=== PATIENT | male | born 1965 | race Caucasian/White ===

== ENCOUNTER → 2017-06-02 09:01 | Emergency (ER) | payer BC ==
[~2017-06-02 09:01] MED LIST: Iohexol 300* (CONTRAST) 10 ML SDV IV ONE; NS 0.9% 1000 ML* 2,000 ML IV ONE
--- NOTE | 2017-06-02 10:02 | ED ---
GI/ HPI - HPI Summary HPI Summary: 51M presents with n/v since Monday. dr dusty did colonoscopy on Monday. had polyps that were removed. took peg fo prep but did eat the morning of. He has been having diarrhea since colonoscopy. He developed pain in his RUQ this morning. States feels similar to when went through withdrawal from opioids. He admits to nausea and vomiting. He denies any dysuria, hematuria, frequency, urgency, or flank pain. He denies any previous abdominal surgeries. Is currently on suboxone but no recent change in medication. He states he has history of stomach pain. It is worst with acidic food the previous pain. - History of Current Complaint Chief Complaint: EDNauseaVomitDiarrh Time Seen by Provider: 06/02/17 09:46 Stated Complaint: NAUSEA,VOMITTING Pain Intensity: 0 - Allergy/Home Medications Allergies/Adverse Reactions: Allergies Allergy/AdvReac Type Severity Reaction Status Date / Time No Known Allergies Allergy Verified 06/02/17 10:07 PMH/Surg Hx/FS Hx/Imm Hx Endocrine/Hematology History: Denies: Hx Diabetes Cardiovascular History: Denies: Hx Hypertension, Hx Pacemaker/ICD History: Denies: Hx Renal Disease Sensory History: Denies: Hx Hearing Aid Psychiatric History: Denies: Hx Panic Disorder - Surgical History Surgery Procedure, Year, and Place: ANAL FISTULAR REPAIR. CARPAL TUNNEL - [facility] Infectious Disease History: Denies: Traveled Outside the [place] in Last 30 Days - Family History Known Family History: Positive: Diabetes - Social History Alcohol Use: None Substance Use Type: Reports: None Smoking Status (MU): Former Smoker Review of Systems Negative: Fever Negative: Chest Pain Negative: Shortness Of Breath Positive: Abdominal Pain, Vomiting, Diarrhea, Nausea All Other Systems Reviewed And Are Negative: Yes Physical Exam Triage Information Reviewed: Yes Vital Signs On Initial Exam: Initial Vitals Temp Pulse Resp BP Pulse Ox 98.4 F 66 22 158/91 100 06/02/17 09:03 06/02/17 09:03 06/02/17 09:03 06/02/17 09:03 06/02/17 09:03 Vital Signs Reviewed: Yes Appearance: Positive: Well-Appearing Skin: Positive: Warm, Dry Head/Face: Positive: Normal Head/Face Inspection Eyes: Positive: Normal, Conjunctiva Clear Respiratory/Lung Sounds: Positive: Clear to Auscultation, Breath Sounds Present Cardiovascular: Positive: Normal, RRR Abdomen Description: Positive: Soft, Other: - tender in epigastric region Bowel Sounds: Positive: Present Diagnostics - Vital Signs Vital Signs Temp Pulse Resp BP Pulse Ox 06/02/17 09:03 98.4 F 66 22 158/91 100 - Laboratory Result Diagrams: 06/02/17 10:20 06/02/17 10:20 Lab Statement: Any lab studies that have been ordered have been reviewed, and results considered in the medical decision making process. - CT abd CT Interpretation: No Acute Changes CT Interpretation Completed By: Radiologist Re-Evaluation - Re-Evaluation First Eval Re-Evaluation Time: 13:30 Change: Improved Comment: feeling better with fluids GIGU Course/Dx - Course Course Of Treatment: 51M presents with n/v since Monday. dr montano did colonoscopy on Monday. had polyps that were removed. took peg fo prep but did eat the morning of. He has been having diarrhea since colonoscopy. He developed pain in his RUQ this morning. States feels similar to when went through withdrawal from opioids. He admits to nausea and vomiting. He denies any dysuria, hematuria, frequency, urgency, or flank pain. He denies any previous abdominal surgeries. Is currently on suboxone but no recent change in medication. on exam tender in LUQ. wbc 15. crp 8. CT nothing acute. will treat as gastritis due to history of stomach pain worst with acidic food. patient understands and agrees with plan. - Diagnoses Differential Diagnoses - Male: Diverticulosis, Esophagitis/Gastritis, Gastroenteritis (Viral) Provider Diagnoses: Abdominal pain, Nausea and vomiting Discharge - Discharge Plan Condition: Good Disposition: HOME Prescriptions: Omeprazole CAP* [Prilosec CAP* 20 MG] 20 mg PO DAILY #20 cap. Ondansetron ODT TAB* [Zofran 4 MG Odt TAB*] 4 mg PO Q6H PRN #20 tab.odt PRN Reason: Nausea Patient Education Materials: Abdominal Pain (ED) Referrals: Goldy Naylor DO [Primary Care Provider] - Additional Instructions: Take Zofran for nausea every 6 hours Take operable 30 min-1 hour before eating in the morning Avoid acidic foods Use tums for break through symptoms Elevated head of bed Stay upright for at least 30 mins after eating Follow up with primary within 5 days Return to ED if develop fever, blood in stool, or severe nausea and vomiting or any new or worsening symptoms
[2017-06-02 10:37] LABS: Hematocrit 42 % (42-52); Hemoglobin 14.1 g/dl (14.0-18.0); Mean Corpuscular HGB Conc 33 g/dl (31-36); Mean Corpuscular Hemoglobin 28 pg (27-31); Mean Corpuscular Volume 84 fL (80-94); Mean Platelet Volume 8 um3 (7.4-10.4); Red Blood Count 5.01 10^6/ul (4.0-5.4); Red Cell Distribution Width 14 % (10.5-15); White Blood Count 15.2 10^3/ul (3.5-10.8)
[2017-06-02 10:56] LABS: BUN/Creatinine Ratio 15.8 (8-20); Calcium 8.9 mg/dL (8.6-10.3); EGFR African American 139.6 (>60); EGFR Non-African American 108.6 (>60); Globulin 2.6 g/dL (2-4); Potassium 3.9 mmol/L (3.5-5.0); Total Bilirubin 0.4 mg/dL (0.2-1.0); Total Protein 6.6 g/dL (6.4-8.9)
[2017-06-02 12:14] LABS: Urine Bacteria Absent (Absent); Urine Bilirubin Negative (Negative); Urine Glucose Negative (Negative); Urine Nitrite Negative (Negative)
--- NOTE | 2017-06-02 14:25 | RAD ---
INDICATION: Left upper quadrant pain. Recent colonoscopy with polypectomy. COMPARISON: CT May 14, 2012 TECHNIQUE: Axial source images were obtained from the hemidiaphragms to the symphysis pubis following administration of oral and intravenous contrast. 136 mL Omnipaque 300 was utilized. Coronal and sagittal reconstructed images were acquired. Lung bases: The lung bases are clear. Liver: The liver is normal in size. There are no new masses. There is 1.5 cm right hepatic lobe hypodensity. This is more conspicuous on today's examination likely related to the fact that this represent a contrast-enhanced exam. This is likely a cyst or hemangioma There is no ductal dilatation. Gallbladder: There are no calcified gallstones. There is no evidence of wall thickening or pericholecystic fluid. Spleen: The spleen is normal in size. There are no masses. Pancreas: There is no focal pancreatic mass or ductal dilatation. Adrenal glands: There is no evidence of adrenal mass. Kidneys: The kidneys are normal in size and position. There are prompt nephrograms and there is prompt excretion bilaterally. There are no renal parenchymal masses. There is no evidence of nephrolithiasis. Adenopathy: There is no evidence of adenopathy by size criteria. Fluid collections: There are no free or localized fluid collections. Vessels:There are no significant atherosclerotic changes involving the aorta. There is no focal aneurysm. The iliac vessels are normal in caliber. The IVC appears normal. GI tract: There are no acute CT bowel findings. There is no obstruction. The stomach and small bowel appear normal. There are no specific CT abnormalities of the lower GI tract. The appendix is visualized and appears normal. There is no pneumatosis. There is no obstruction. Pelvic organs: The prostate and seminal vesicles appear normal Bladder: The bladder wall appears trabeculated. Abdominal and pelvic soft tissues: The extraperitoneal abdominal and pelvic soft tissues appear normal.. Osseous structures: There are no acute osseous findings. Other: None IMPRESSION: The bladder wall appears thickened. There are no additional significant CT findings.
[2017-06-02 15:29] VITALS: BP 124/100
== END | disposition home or self-care (01) ==
LOC: ED 09:01
DX: R11.2 Nausea with vomiting, unspecified (principal); R10.9 Unspecified abdominal pain; R19.7 Diarrhea, unspecified; Z87.891 Personal history of nicotine dependence
CPT/HCPCS: 36415; 74177; 80053; 81003; 81015; 83690; 85025; 86141; 99283; Q9967

== ENCOUNTER 2018-01-11 09:46 | Emergency (ER) | payer BC ==
--- OUTSIDE RECORDS SUMMARY | 2018-01-11 09:57 | XMS REPORT ---
:1965 External Reference #:[id number] Author Organization [facility] Address [address] [place] [address] Phone [phone] Care Team Providers Name Role Phone Cresencio Valerio M.D. Care Team Information Compliance Aide Unavailable Payers Type Date Identification Numbers Payment Provider Subscriber Health Maintenance Policy Number: [id number] Chel Mccartney [facility] (O) PayID: [id number] [address] [place] [address] Problems Date Description Provider Status Onset: 05/16/2014 Chronic prostatitis Goldy Naylor D.O. Active Onset: 05/16/2014 Low back pain Goldy Naylor D.O. Active Onset: 10/07/2015 Contusion of interscapular region Goldy Naylor D.O. Active Onset: 10/07/2015 Myalgia Goldy Naylor D.O. Active Onset: 03/28/2016 Degeneration of lumbar intervertebral Cresencio Valerio M.D. Active disc Onset: 11/27/2017 Sleep apnea Cresencio Valerio M.D. Active Onset: 03/31/2017 Benign prostatic hypertrophy with Cresencio Valerio M.D. 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 morning for attention/c oncentratio n Fluticasone 11/27/ Active Suspension 50mcg/Act 16uni 2 sprays J31.0 Silcoff, Propionate 2017 ts into each Cresencio nostril M.D. once daily for nasal congestion Omeprazole 06/02/ Active Capsules DR 20mg 90cap one by K21.9 Silcoff, 2017 s mouth daily Cresencio, for acid M.D. reflux R11.2 Ondansetron 06/02/2017 Active Tablets 4mg 30tabs Dissolve One R11.2 Silcoff, Dispers Tablet On Cresencio, The Tongue M.D. Every 6 Hours as Needed For Nausea Ibuprofen 08/04/2016 Active Tablets 200mg taking 2 tab Unknown to 4 tab with a snack for your pain as needed Tamsulosin HCL 2016 Active Capsules 0.4mg 30caps take one N40.1 Silcoff, capsule by Cresencio, mouth once M.D. daily as directed Cyclobenzaprine 07/04/2016 Active Tablets 10mg 30tabs 1 by mouth M54.5 Silcoff, HCL three times Cresencio, a day as M.D. needed for back pain; this medication is sedating. Buprenorphine 05/03/2016 Active Tablets 8-2mg 45tabs 1 tab by M54.5 Silcoff, HCL-Naloxone HCL Sub mouth every Cresencio, in the M.D. morning and 1/2 tablet in late afternoon; prescriber# [id number]; may fill 12/28/17 M51.36 Z79.891 Amphetamine-Dextroamp 11/27 Hx Caps ER 24HR 10mg 30cap take 1 capsule by F90.2 Silcoff, het ER /2017 s mouth every Cresencio, - morning for M.D. 12/08 attention/concentr 2018 ation; if not helpful may increase to 2 pills daily in am Prochlorperazine 05/31 Hx Tablets 5mg 10tab take 1-2 tablets A08.3 Silcoff, Male s by mouth every 6 9 Cresencio, - hours as needed M.D. 06/03 for nausea /2016 Alpha Male Supplement 05/02 Hx as directed Unknown - 05/02 Buprenorphine 04/04 Hx Tablets Sub 8-2mg 30tab 1/2 tab by mouth M54.5 Silcoff, HCL-Naloxone HCL /2015 s 2x/day; Cresencio, - buprenorphine M.D. 05/03 prescriber# /2015 [id number] M51.36 Buprenorphine 03/28/2016 - Hx Tablets 8-2mg 7tabs 1/2 tab by M54.5 Silcoff, HCL-Naloxone HCL 04/04/2016 Sub mouth today; Cresencio, starting M.D. tomorrow take 1/2 tab in am and 1/2 tab in mid afternoon M51.36 Phenazopyridine 10/07/2015 - Hx Tablets 200mg 9tabs 1 by mouth N41.1 Sopchak, HCL 10/10/2015 three Goldy, times a D.O. day for 3 days this will turn your urine orange colored. Ciprofloxacin HCL 10/07/2015 - Hx Tablets 500mg 60tabs 1 tab N41.1 Mariajosek, 11/06/2015 twice a Goldy, day x 30 D.O. days Gabapentin 05/30/2014 - Hx Capsules 100mg 120caps 1 tabs by 601.1 Sopchak, 10/07/2015 mouth four Goldy, times a D.O. day Opana 05/15/2014 - Hx Tablets 10mg 160tabs 1 by mouth M54.5 Unknown 03/28/2016 four times a day Opana ER 05/15/2014 - Hx Tab ER 12H 30mg 1 po bid M54.5 Unknown 03/28/2016 Abuse-Det Amrix - Hx Caps ER 24HR 15mg Unknown 10/07/2015 Oxycodone HCL - Hx Concentrate 100mg/5 Unknown 10/07/2015 ML Oxymorphone HCL - Hx Tablets ER 30mg Unknown ER 10/07/2015 12HR Ciprofloxacin HCL - Hx Tablets 500mg 1 bid Clive, 10/07/2015 MD Eulalio Palafox - Hx Capsules 10mg Unknown 03/27/2016 Doxycycline - Hx Capsules 100mg Unknown Hyclate 12/28/2013 Immunizations CPT Code Status Date Vaccine Lot # [id number] Given 07/28/2017 Influenza Virus Vaccine, Quadrivalent, Split, Preservative Free 13089 Given 08/05/2016 Influenza Virus Vaccine, Quadrivalent, Split, [id number] Preservative Free [id number] Given 05/16/2014 Adacel or Boostrix, TDaP [id number] Vital Signs Date Vital Result Comment 12/25/2017 BP Systolic 116 mmHg BP Diastolic 74 mmHg Weight 250.00 lb 11/27/2017 BP Systolic 118 mmHg BP Diastolic 70 mmHg 10/27/2017 BP Systolic 120 mmHg BP Diastolic 78 mmHg Weight 250.00 lb with sneakers 09/26/2017 BP Systolic 116 mmHg BP Diastolic 70 mmHg Weight 249.00 lb w/workboots 08/28/2017 BP Systolic 120 mmHg BP Diastolic 76 mmHg Weight 249.50 lb 07/28/2017 BP Systolic 102 mmHg BP Diastolic 70 mmHg Weight 246.00 lb 06/30/2017 BP Systolic 110 mmHg BP Diastolic 72 mmHg Weight 245.00 lb with sneakers 05/31/2017 BP Systolic 120 mmHg BP Diastolic 80 mmHg Body Temperature 97.7 F Weight 241.00 lb 05/01/2017 BP Systolic 122 mmHg BP Diastolic 80 mmHg Weight 241.00 lb 03/31/2017 BP Systolic 118 mmHg BP Diastolic 80 mmHg Height 69.25 inches 5'9.25" with sneakers Weight 234.00 lb with sneakers BMI (Body Mass Index) 34.3 kg/m2 03/01/2017 BP Systolic 100 mmHg BP Diastolic 70 mmHg Weight 238.00 lb 01/30/2017 BP Systolic 118 mmHg BP Diastolic 82 mmHg Weight 240.00 lb 12/30/2016 BP Systolic 120 mmHg BP Diastolic 80 mmHg Weight 245.00 lb 12/02/2016 BP Systolic 132 mmHg BP Diastolic 92 mmHg Weight 250.00 lb 11/01/2016 BP Systolic 118 mmHg BP Diastolic 70 mmHg Heart Rate 68 /min reg Respiratory Rate 12 /min not laboured Body Temperature 97.9 F Weight 258.00 lb w/shoes 10/03/2016 BP Systolic 102 mmHg BP Diastolic 82 mmHg Height 69.75 inches 5'9.75" Weight 253.00 lb BMI (Body Mass Index) 36.6 kg/m2 08/30/2016 BP Systolic 118 mmHg BP Diastolic 82 mmHg Weight 257.00 lb 08/05/2016 BP Systolic 126 mmHg BP Diastolic 80 mmHg Weight 257.00 lb w/flip flops 07/04/2016 BP Systolic 132 mmHg BP Diastolic 86 mmHg Weight 263.00 lb 05/31/2016 BP Systolic 140 mmHg BP Diastolic 88 mmHg Weight 265.00 lb 05/03/2016 BP Systolic 120 mmHg BP Diastolic 84 mmHg Weight 271.00 lb 04/04/2016 BP Systolic 128 mmHg BP Diastolic 82 mmHg 03/28/2016 BP Systolic 138 mmHg BP Diastolic 90 mmHg Height 69 inches 5'9" with sneakers Weight 268.00 lb with sneakers BMI (Body Mass Index) 39.6 kg/m2 10/07/2015 BP Systolic 125 mmHg BP Diastolic 80 mmHg Height 68.25 inches 5'8.25" Weight 297.00 lb BMI (Body Mass Index) 44.8 kg/m2 05/30/2014 BP Systolic 120 mmHg BP Diastolic 96 mmHg 05/16/2014 BP Systolic 142 mmHg BP Diastolic 80 mmHg Height 68.5 inches 5'8.50" Weight 283.00 lb BMI (Body Mass Index) 42.4 kg/m2 Results Test Date Test Result H/L Range Note Urine Drug Screen Inhouse 09/26/2017 Ua Cocaine - Ua Opiates - Ua Amphetamines - Urine Methanphetamines - Urine Benzodiazepines QN [place] - Urine Oxycodone QL - Laboratory test finding 06/02/2017 Lipase 12 U/L 11.0-82.0 CRP High Sensitivity 4.66 mg/L 1 Urinalysis Profile 06/02/2017 Urine Color Yellow Urine Appearance Cloudy Urine Specific [place] 1.025 1.010-1.030 Urine pH 8.0 5-9 Urine Urobilinogen Negative Negative Urine Ketones Trace Negative Urine Protein 1+(30 mg/dL) Negative Urine Leukocytes Negative Negative Urine Blood Negative Negative Urine Nitrite Negative Negative Urine Bilirubin Negative Negative Urine Glucose Negative Negative Urine White Blood Cell Absent Absent Urine Red Blood Cell Trace(0-2/hpf) Absent Urine Bacteria Absent Absent Urine Squamous Epithelial Cell Present Absent Comp Metabolic Panel 06/02/2017 Sodium 137 mmol/L 133-145 Potassium 3.9 mmol/L 3.5-5.0 Chloride 104 mmol/L 101-111 Co2 Carbon Dioxide 28 mmol/L 22-32 Anion Gap 5 mmol/L 2-11 Glucose 110 mg/dL High 70-100 Blood Urea Nitrogen 12 mg/dL 6-24 Creatinine 0.76 mg/dL 0.67-1.17 BUN/Creatinine Ratio 15.8 8-20 Calcium 8.9 mg/dL 8.6-10.3 Total Protein 6.6 g/dL 6.4-8.9 Albumin 4.0 g/dL 3.2-5.2 Globulin 2.6 g/dL 2-4 Albumin/Globulin Ratio 1.5 1-3 Total Bilirubin 0.40 mg/dL 0.2-1.0 Alkaline Phosphatase 64 U/L 34-104 Alt 18 U/L 7-52 Ast 15 U/L 13-39 Egfr Non- 108.6 >60 Egfr 139.6 >60 2 CBC Auto Diff 06/02/2017 White Blood Count 15.2 10^3/uL High 3.5-10.8 Red Blood Count 5.01 10^6/uL 4.0-5.4 Hemoglobin 14.1 g/dL 14.0-18.0 Hematocrit 42 % 42-52 Mean Corpuscular Volume 84 fL 80-94 Mean Corpuscular Hemoglobin 28 pg 27-31 Mean Corpuscular HGB Conc 33 g/dL 31-36 Red Cell Distribution Width 14 % 10.5-15 Platelet Count 238 10^3/uL 150-450 Mean Platelet Volume 8 um3 7.4-10.4 Abs Neutrophils 13.0 10^3/uL High 1.5-7.7 Abs Lymphocytes 1.6 10^3/uL 1.0-4.8 Abs Monocytes 0.5 10^3/uL 0-0.8 Abs Eosinophils 0 10^3/uL 0-0.6 Abs Basophils 0.1 10^3/uL 0-0.2 Abs Nucleated RBC 0 10^3/uL Granulocyte % 85.2 % High 38-83 Lymphocyte % 10.8 % Low 25-47 Monocyte % 3.1 % 1-9 Eosinophil % 0.2 % 0-6 Basophil % 0.7 % 0-2 Nucleated Red Blood Cells % 0 Laboratory test finding 05/29/2017 Surgical Pathology SEE RESULT BELOW 3, 4 Ua RFX Micro & 03/10/2017 Urine Color YELLOW Yellow 5 Culture II Urine Clarity CLEAR Clear 5 Urine Glucose - Dipstick NEGATIVE mg/dL Negative 5 Urine Bilirubin - Dipstick NEGATIVE Negative 5 Urine Ketone NEGATIVE mg/dL Negative 5 Urine Specific Bellflower >=1.030 1.010-1.030 5 Urine Blood TRACE Negative 5 Urine PH 5.5 Low 6.5-7.5 5 Urine Protein - Dipstick TRACE mg/dL Negative 5 Urine Urobilinogen - Dipstick 0.2 E.U./dL 0.2-1.0 5 Urine Nitrite - Dipstick NEGATIVE Negative 5 Urine Leuk Esterase NEGATIVE Negative 5 Source: URINE, CLEAN CAT <SEE NOTE> 5, 6 Urine Drug Screen Inhouse 03/01/2017 Ua Cocaine - Ua Opiates - Ua Amphetamines - Urine Methanphetamines - Urine Benzodiazepines QN [place] - Urine Oxycodone QL - Urine Micro Inhouse 11/01/2016 Ua WBC - 7 Ua RBC - 7 Ua Casts - 7 Ua Epi - 7 Ua Other - 7 Ua Glucose - 7 Ua Bilirubin - 7 Ua Ketones - 7 Ua Specific Bellflower 1.010 7 Ua Blood - 7 Ua PH 6.5 7 Ua Protein - 7 Ua Urobilinogen - 7 Ua Nitrite - 7 Ua Leukocytes - 7 Culture Urine Inhouse 11/01/2016 Colonies no growth 7 Urine Drug Screen Inhouse 11/01/2016 Ua Cocaine - Ua Opiates - Ua Amphetamines - Urine Methanphetamines - Urine Benzodiazepines QN [place] - Urine Oxycodone QL - Urine Drug Screen Inhouse 08/30/2016 Ua Cocaine - Ua Opiates - Ua Amphetamines - Urine Methanphetamines - Urine Benzodiazepines QN [place] - Urine Oxycodone QL - Urine Drug Screen Inhouse 08/05/2016 Ua Cocaine - Ua Opiates - Ua Amphetamines - Urine Methanphetamines - Urine Benzodiazepines QN [place] - Urine Oxycodone QL - Urine Drug Screen Inhouse 07/04/2016 Ua Cocaine - Ua Opiates - Ua Amphetamines - Urine Methanphetamines - Urine Benzodiazepines QN [place] - Urine Oxycodone QL - Urine Drug Screen Inhouse 05/03/2016 Ua Cocaine - Ua Opiates - Ua Amphetamines - Urine Methanphetamines - Urine Benzodiazepines QN [place] - Urine Oxycodone QL - Laboratory test finding 02/25/2016 PSA Screening 1.077 ng/mL 0-4.0 8 Creatinine 02/25/2016 Creatinine 0.78 mg/dL 0.67-1.17 Egfr Non- 105.8 >60 Egfr 136.1 >60 9 Laboratory test finding 02/25/2016 Blood Urea Nitrogen BUN 13 mg/dL 6-24 Comp Metabolic Panel 10/07/2015 Sodium 136 mmol/L 133-145 Potassium 4.3 mmol/L 3.5-5.0 Chloride 99 mmol/L Low 101-111 Co2 Carbon Dioxide 31 mmol/L 22-32 Anion Gap 6 mmol/L 2-11 Glucose 112 mg/dL High 70-100 Blood Urea Nitrogen 13 mg/dL 6-24 Creatinine 0.79 mg/dL 0.67-1.17 BUN/Creatinine Ratio 16.5 8-20 Calcium 8.9 mg/dL 8.6-10.3 Total Protein 6.3 g/dL Low 6.4-8.9 Albumin 3.8 g/dL 3.2-5.2 Globulin 2.5 g/dL 2-4 Albumin/Globulin Ratio 1.5 1-3 Total Bilirubin 0.30 mg/dL 0.2-1.0 Alkaline Phosphatase 65 U/L 34-104 Alt 18 U/L 7-52 Ast 16 U/L 13-39 Egfr Non- 104.2 >60 Egfr 134.1 >60 10 CBC Auto Diff 10/07/2015 White Blood Count 13.0 10^3/uL High 3.5-10.8 Red Blood Count 4.91 10^6/uL 4.0-5.4 Hemoglobin 13.4 g/dL Low 14.0-18.0 Hematocrit 41 % Low 42-52 Mean Corpuscular Volume 84 fL 80-94 Mean Corpuscular Hemoglobin 27 pg 27-31 Mean Corpuscular HGB Conc 33 g/dL 31-36 Red Cell Distribution Width 15 % 10.5-15 Platelet Count 251 10^3/uL 150-450 Mean Platelet Volume 7 um3 Low 7.4-10.4 Abs Neutrophils 9.3 10^3/uL High 1.5-7.7 Abs Lymphocytes 2.3 10^3/uL 1.0-4.8 Abs Monocytes 0.9 10^3/uL High 0-0.8 Abs Eosinophils 0.4 10^3/uL 0-0.6 Abs Basophils 0.1 10^3/uL 0-0.2 Abs Nucleated RBC 0.01 10^3/uL Granulocyte % 71.8 % 38-83 Lymphocyte % 17.5 % Low 25-47 Monocyte % 7.0 % 1-9 Eosinophil % 3.3 % 0-6 Basophil % 0.4 % 0-2 Nucleated Red Blood Cells % 0.1 Laboratory test finding 10/07/2015 PSA Diagnostic 0.966 ng/mL 0-4.000 11 1 Low risk: <1.00 Average risk: 1.00-3.00 High risk: >3.00 2 Because ethnic data is not always readily available, this report includes an eGFR for both -Americans and non- Americans. The National Kidney Disease Education Program (NKDEP) does not endorse the use of the MDRD equation for patients that are not between the ages of 18 and 70, are , have extremes of body size, muscle mass, or nutritional status, or are non- or non-. According to the National Kidney Foundation, irrespective of diagnosis, the stage of the disease is based on the level of kidney function: Stage Description GFR(mL/min/1.73 m(2)) 1 Kidney damage with normal or decreased GFR 90 2 Kidney damage with mild decrease in GFR 60-89 3 Moderate decrease in GFR 30-59 4 Severe decrease in GFR 15-29 5 Kidney failure <15 (or dialysis) 3 [id number] SEE RESULT BELOW Name: AJN MCCARTNEY : [address]: John Palacios MD Acct: [id number] Unit: [id number] AGE: 51 Location: [facility] Re05/29/17 SEX: M Status: DEP REF SPEC: [id number] KIRSTIN: 05/29/170837 [facility] DR: John Palacios MD REQ: [id number] RECD: 05/29/17 STATUS: GONZÁLEZ SWEENEY DR: Cresencio Valerio MD _ ORDERED: LEVEL 4/3 COMMENTS: [id number] FINAL DIAGNOSIS 1. Colon, hepatic flexure, biopsy: -- Tubular adenoma. -- No high grade dysplasia or malignancy. 2. Colon, transverse, biopsy: -- Tubular adenoma. -- No high grade dysplasia or malignancy. 3. Colon, descending, biopsy: -- Tubular adenoma. -- No high grade dysplasia or malignancy. CLINICAL HISTORY No history given POST-OPERATIVE DIAGNOSIS Colonoscopy into cecum, prep fair - 4 small polyps removed. Conclusions/Plan : Four small polyps removed GROSS DESCRIPTION 1. The specimen is received in formalin labeled, Biopsy Hepatic Flexure Polyp, and consists of two joseph-pink irregular to polypoid soft tissue fragments measuring 0.3 x 0.2 x 0.1 cm and 0.4 x 0.2 x 0.2 cm, which are entirely submitted in one cassette. 2. The specimen is received in formalin labeled, Biopsy Transverse Colon Polyp, and consists of a 0.5 x 0.3 x 0.2 cm joseph-white irregular to polypoid soft tissue fragment, which is entirely submitted in one cassette. CONTINUED ON NEXT PAGE * ML=Testing performed at Main Lab DEPARTMENT OF PATHOLOGY, [address] [place] [address] Car Parrish M.D. Director [facility] # [id number] RUN DATE: 05/30/17 [facility] LAB LIVE PAGE 2 Patient: JAN MCCARTNEY [id number] (Continued) GROSS DESCRIPTION (Continued) GROSS DESCRIPTION (Continued) 3. The specimen is received in formalin labeled, Biopsy Descending Colon Polyp, and consists of three joseph-white irregular to polypoid soft tissue fragments admixed with scant red-brown blood clot ranging from 0.3 x 0.2 x 0.2 cm to 0.5 x 0.3 x 0.2 cm, which are entirely submitted in one cassette. Signed (signature on file) Magalis Emmanuel MD 06/08 1104 END OF REPORT * ML=Testing performed at Main Lab DEPARTMENT OF PATHOLOGY, [address] [place] [address] Car Parrish M.D. Director [facility] # [id number] 5 ? INFECTION , NEEDS ANTIBIOTICS 6 URINE, CLEAN CATCH 7 void, clear, yellow 8 Serum levels of PSA measured using the [employer] [place] DXI Hybritech immunoassay should not be interpreted as absolute evidence of the presence or absence of disease. The PSA value should be used in conjunction with other pertinent clinical diagnostic procedures. The values obtained with different assay methods or kits cannot be used interchangeably. 9 Because ethnic data is not always readily available, this report includes an eGFR for both -Americans and non- Americans. The National Kidney Disease Education Program (NKDEP) does not endorse the use of the MDRD equation for patients that are not between the ages of 18 and 70, are , have extremes of body size, muscle mass, or nutritional status, or are non- or non-. According to the National Kidney Foundation, irrespective of diagnosis, the stage of the disease is based on the level of kidney function: Stage Description GFR(mL/min/1.73 m(2)) 1 Kidney damage with normal or decreased GFR 90 2 Kidney damage with mild decrease in GFR 60-89 3 Moderate decrease in GFR 30-59 4 Severe decrease in GFR 15-29 5 Kidney failure <15 (or dialysis) 10 Because ethnic data is not always readily available, this report includes an eGFR for both -Americans and non- Americans. The National Kidney Disease Education Program (NKDEP) does not endorse the use of the MDRD equation for patients that are not between the ages of 18 and 70, are , have extremes of body size, muscle mass, or nutritional status, or are non- or non-. According to the National Kidney Foundation, irrespective of diagnosis, the stage of the disease is based on the level of kidney function: Stage Description GFR(mL/min/1.73 m(2)) 1 Kidney damage with normal or decreased GFR 90 2 Kidney damage with mild decrease in GFR 60-89 3 Moderate decrease in GFR 30-59 4 Severe decrease in GFR 15-29 5 Kidney failure <15 (or dialysis) 11 Serum levels of PSA measured using the [employer] [place] DXI Hybritech immunoassay should not be interpreted as absolute evidence of the presence or absence of disease. The PSA value should be used in conjunction with other pertinent clinical diagnostic procedures. The values obtained with different assay methods or kits cannot be used interchangeably. Procedures Date CPT Code Description Status Comment 05/29/2017 Colonoscopy Completed 2017:3 TAs (P: repeat 5yrs) Encounters Type Date Location Provider CPT E/M Dx Office Visit 12/25/2017 9:15a Main Office Cresencio Valerio M.D. 15500 Z79.891 Z71.51 M51.36 M54.5 F90.2 Office Visit 11/27/2017 11:30a Main Office Cresencio Valerio M.D. 06978 Z79.891 Z71.51 M51.36 M54.5 J34.2 J31.0 G47.30 F34.1 F90.2 Office Visit 10/27/2017 11:45a Main Office Cresencio Valerio M.D. 23311 Z79.891 Z71.51 M51.36 M54.5 Office Visit 09/26/2017 2:30p Main Office Cresencio Valerio M.D. 09103 Z79.891 Z71.51 M51.36 M54.5 Office Visit 08/28/2017 10:15a Main Office Cresencio Valerio M.D. 93570 Z79.891 Z71.51 M51.36 M54.5 Office Visit 07/28/2017 3:45p Main Office Cresencio Valerio M.D. 35735 Z79.891 Z71.51 M51.36 M54.5 K21.9 Z23 Office Visit 06/30/2017 1:30p Main Office Cresencio Valerio M.D. 88568 Z79.891 Z71.51 M51.36 M54.5 K21.9 R11.2 Z23 Office Visit 05/31/2017 10:00a Main Office Cresencio Valerio M.D. 31583 Z79.891 Z71.51 M51.36 M54.5 Z86.010 A08.39 Office Visit 05/01/2017 10:45a Main Office Cresencio Valerio M.D. 42145 M54.5 M51.36 Z71.51 Z79.891 Office Visit 03/31/2017 11:00a Main Office Cresencio Valerio M.D. 64622 M54.5 M51.36 Z71.51 Z79.891 N40.1 Office Visit 03/01/2017 10:15a Main Office Cresencio Valerio M.D. 83869 M54.5 M51.36 Z71.51 Z79.891 Office Visit 01/30/2017 12:55p Main Office Cresencio Valerio M.D. 80865 Z79.891 Z12.11 M51.36 Office Visit 12/30/2016 1:45p Main Office Cresencio Valerio M.D. 31620 Z71.51 Z79.891 M54.5 Office Visit 12/02/2016 9:15a Main Office Cresencio Valerio M.D. 46100 Z79.891 Z71.51 M54.5 Office Visit 11/01/2016 11:00a Main Office Cresencio Valerio M.D. 38847 Z79.891 Z71.51 M54.5 R35.0 R39.15 R10.814 Office Visit 10/03/2016 10:45a Main Office Cresencio Valerio M.D. 55598 Z79.891 Z71.51 M51.36 M54.5 Office Visit 08/30/2016 9:30a Main Office Cresencio Valerio M.D. 39138 Z79.891 Z71.51 M51.36 M54.5 M72.2 Office Visit 08/05/2016 11:30a Main Office Cresencio Valerio M.D. 77069 M51.36 M54.5 Z79.891 Z71.51 Z12.11 Z23 Z41.8 Office Visit 07/04/2016 9:30a Main Office Cresencio Valerio M.D. 12900 M51.36 M54.5 Z79.891 Office Visit 05/31/2016 11:15a Main Office Cresencio Valerio M.D. 90136 M54.5 M72.2 Z79.891 Office Visit 05/03/2016 11:30a Main Office Cresencio Valerio M.D. 52318 M54.5 M72.2 Office Visit 04/04/2016 9:30a Main Office Cresencio Valerio M.D. 15228 M54.5 M51.36 M72.2 Z79.891 Office Visit 03/28/2016 9:30a Main Office Cresencio Valerio M.D. 48312 M54.5 M51.36 Z79.891 Office Visit 10/07/2015 1:30p Main Office Goldy Naylor D.O. 13401 N41.1 M54.5 M79.1 S20.222A Y92.012 Office Visit 05/30/2014 4:15p Main Office Goldy Naylor D.O. 36016 601.1 724.2 729.1 Office Visit 05/16/2014 2:45p Main Office Goldy Naylor D.O. 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 Continue current medication.
[2018-01-11 10:00] VITALS: BP 148/89
--- NOTE | 2018-01-11 11:12 | RAD ---
INDICATION: Right hand injury. TECHNIQUE: 2 views of the right hand were obtained. FINDINGS: There is soft tissue swelling in the third and fourth fingers. The bones are in normal alignment. No fracture is seen. Joint spaces appear maintained. IMPRESSION: SOFT TISSUE SWELLING, NO FRACTURE IS SEEN.
--- NOTE | 2018-01-11 15:06 | UC ---
Nelson Horvath Angela, scribed for Ok Savage MD on 01/11/18 at 1003 . Upper Extremity HPI - HPI Summary HPI Summary: This pt is a 52 y/o male presenting to [facility] c/o right hand pain s/p injury yesterday. 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 Pt states he injured his right fourth finger. He notes that he has been having pain since last night. Pt rates his pain 4 to 5 out of 10 in severity. Pt denies any other complaints. No PMHx. PSHx: sphincterotomy for anal fissure repair. - History of Current Complaint Chief Complaint: UCUpperExtremity Stated Complaint: HAND INJURY Time Seen by Provider: 01/11/18 09:56 Hx Obtained From: Patient Onset/Duration: Lasting Hours, Still Present Severity Currently: Severe Pain Intensity: 5 Pain Scale Used: 0-10 Numeric Location Of Pain: Is Discrete @ - right hand, right fourth finger Aggravating Factor(s): Movement Alleviating Factor(s): Rest Associated Signs And Symptoms: Positive: Negative - Allergies/Home Medications Allergies/Adverse Reactions: Allergies Allergy/AdvReac Type Severity Reaction Status Date / Time No Known Allergies Allergy Verified 01/11/18 09:54 Home Medications: Home Medications Ibuprofen TAB* [Motrin TAB* 800 MG] 800 mg PO Q4HR PRN 01/11/18 [History Confirmed 01/11/18] PMH/Surg Hx/FS Hx/Imm Hx Other Endocrine History: DENIES: diabetes Other Cardiovascular History: DENIES: HTN Other GI/ History: Prostatitis - Surgical History Surgical History: Yes Surgery Procedure, Year, and Place: ANAL FISTULAR REPAIR. CARPAL TUNNEL - [place] - Family History Known Family History: Positive: Diabetes - Social History Alcohol Use: None Substance Use Type: Prescribed Substance Use Comment - Amount & Last Used: Suboxone Smoking Status (MU): Former Smoker Review of Systems Constitutional: Negative Skin: Negative Eyes: Negative ENT: Negative Respiratory: Negative Cardiovascular: Negative Gastrointestinal: Negative Genitourinary: Negative Motor: Negative Neurovascular: Negative Musculoskeletal: Other: - right hand pain, right fourth finger pain Neurological: Negative Psychological: Negative All Other Systems Reviewed And Are Negative: Yes Physical Exam - Summary Physical Exam Summary: VITAL SIGNS: Reviewed. GENERAL: Patient is a well-developed and nourished male who is lying comfortable in the stretcher. Patient is not in any acute respiratory distress. HEAD AND FACE: Normocephalic EYES: PERRLA, EOMI x 2. EARS: Hearing grossly intact. MOUTH: Oropharynx within normal limits. NECK: Supple, trachea is midline, no adenopathy, no JVD, no carotid bruit. CHEST: Symmetric, no tenderness at palpation LUNGS: Clear to auscultation bilaterally. No wheezing or crackles. CVS: Regular rate and rhythm, S1 and S2 present, no murmurs or gallops appreciated. ABDOMEN: Soft, non-tender. Bowel sounds are normal. No abdominal abnormal pulsations. EXTREMITIES: Full ROM in all major joints, no cyanosis or clubbing. RUE: swelling around the right fourth finger. No erythema. No deformity. No open areas. NEURO: Alert and oriented x 3. No acute neurological deficits. Speech is normal and follows commands. SKIN: Dry and warm Triage Information Reviewed: Yes Vital Signs: Initial Vital Signs Temp 98.2 F 01/11/18 09:56 Pulse 72 01/11/18 09:56 Resp 16 01/11/18 09:56 BP 148/89 01/11/18 09:56 Pulse Ox 99 01/11/18 09:56 Vital Signs Reviewed: Yes Diagnostics - Radiology Right hand XR Xray Interpretation: Positive (See Comments) - IMPRESSION: Soft tissue swelling , no fracture is seen. Dr. Savage has reviewed this radiology report. Radiology Interpretation Completed By: Radiologist Re-Evaluation - Re-Evaluation First Eval Re-Evaluation Time: 11:19 Comment: I reviewed the XR results with the pt. Upper Extremity Course/Dx - Course Course Of Treatment: This pt is a 52 y/o male presenting to [facility] c/o right hand pain s/p injury yesterday. 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 Pt states he injured his right fourth finger. He notes that he has been having pain since last night. Pt rates his pain 4 to 5 out of 10 in severity. Pt denies any other complaints. No PMHx. PSHx: sphincterotomy for anal fissure repair. Right hand XR shows soft tissue swelling, no fracture is seen. There are no cuts, no openings, no erythema, therefore I have no suspicion for tenosynovitis. However the pt was instructed that if his pain is worse, has throbbing like pain, or redness, he should go immediately to the emergency department to rule out tenosynovitis. I believe the pt has a tendon injury and swelling, therefore he will be discharged to home. He is advised to take ibuprofen for the pain. I discussed all the findings and test results with the patient. Pt was instructed to return to the urgent care or go to ER immediately if any of the symptoms return or worsens. Plan of care was discussed with the patient and pt understands and agrees. All questions were answered to patient satisfaction. There were no further complaints or concerns. Pt will be discharged to home with follow up from PCP. Pt is hemodynamically stable, alert and oriented x3. The patient was found to have increased blood pressure in UC. The patient will follow up with PCP for better control of BP. - Differential Dx/Diagnosis Provider Diagnoses: Finger sprain Discharge - Sign-Out/Discharge Documenting (check all that apply): Discharge - Discharge Plan Condition: Stable Disposition: HOME Patient Education Materials: Finger Sprain (ED) Referrals: Cresencio Valerio MD [Primary Care Provider] - Additional Instructions: FOLLOW UP WITH YOUR PRIMARY CARE PROVIDER WITHIN ONE WEEK FOR HIGH BLOOD PRESSURE NOTED TODAY. RETURN TO URGENT CARE OR THE ED FOR ANY WORSENING OR NEW SYMPTOMS. The documentation as recorded by the Nelson de la rosa Angela accurately reflects the service I personally performed and the decisions made by me, Ok Savage MD.
== END 2018-01-11 11:35 | disposition home or self-care (01) ==
LOC: UCEAST 09:46
DX: S63.614A Unspecified sprain of right ring finger, initial encounter (principal); X58.XXXA Exposure to other specified factors, initial encounter; Y92.9 Unspecified place or not applicable; Z87.891 Personal history of nicotine dependence
CPT/HCPCS: 99211; G0463

== ENCOUNTER 2018-12-10 10:32 | Emergency (ER) | payer BC ==
[2018-12-10] MEDS ORDERED: Pantoprazole IV* 40 MG IV ONE (10:44)
[2018-12-10] MEDS ORDERED: Famotidine TAB* 20 MG PO ONE (10:44)
[2018-12-10] MEDS ORDERED: Al Hydrox/Mg Hydrox/Simet LIQ* 30 ML UDC PO ONE (10:44)
[2018-12-10] MEDS ORDERED: Sucralfate TAB* 1 GM PO ONE (10:44)
--- OUTSIDE RECORDS SUMMARY | 2018-12-10 10:44 | XMS REPORT | Continuity of Care Document ---
:1965 External Reference #:[id number] Author Name Cresencio Valerio M.D. Address [address] [facility] [address] [place] [address] Care Team Providers Name Role Phone Cresencio Valerio M.D. 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 Active Onset: 05/16/2014 Low back pain Goldy Naylor D.O. Active Onset: 10/07/2015 Contusion of interscapular region Goldy Naylor D.O. Active Onset: 10/07/2015 Myalgia Goldy Naylor D.O. Active Onset: 03/28/2016 Degeneration of lumbar intervertebral Cresencio Valerio M.D. Active disc Onset: 02/26/2018 Attention deficit hyperactivity Cresencio Valerio M.D. Active disorder, combined type Onset: 11/27/2017 Sleep apnea Cresencio Valerio M.D. Active Onset: 03/31/2017 Benign prostatic hypertrophy with Cresencio Valerio M.D. 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 morning for attention/c oncentratio n; rx due 11/29/18 Fluticasone 11/27/ Active Suspension 50mcg/Act 16uni 2 sprays J31.0 Silcoff, Propionate 2018 ts into each Cresencio nostril M.D. once daily for nasal congestion Ondansetron 06/02/ Active Tablets 4mg 30tab Dissolve R11.2 Silcotom, 2016 Dispers s One Tablet Cresencio On The M.D. Tongue Every 6 Hours as Needed For Nausea Omeprazole 06/02/ Active Capsules DR 20mg 90cap Take One K21.9 Silcoff, 2016 s Capsule By Cresencio, Mouth Every M.D. Day For Acid Reflux R11.2 Ibuprofen 08/04/2016 Active Tablets 200mg taking 2 tab Unknown to 4 tab with a snack for your pain as needed Tamsulosin HCL 2016 Active Capsules 0.4mg 90ca take one N40 Sopchak, ps capsule by .1 Goldy, mouth every D.O. day as directed Cyclobenzaprine HCL 07/04/2016 Active Tablets 10mg 30ta 1 by mouth M54 Teodoro bs three times a .5 Cresencio, day as needed M.D. for back pain; this medication is sedating. Buprenorphine 05/03/2016 Active Tablets Sub 8-2mg 45ta 1 tab by Janis Valerio HCL-Naloxone HCL bs mouth every .5 Cresencio, in the M.D. morning and 1/2 tablet in late afternoon; prescriber# [id number] M51.36 Z79.891 Replacement Mask, 03/28 Hx for cpap G47.3 Silcoff, Headger And Tubing /2017 0 Cresencio, - M.DAdama 03/29 Amphetamine-Dextroamp 12/08 Hx Caps ER 24HR 20mg 30cap take 1 capsule by F90.2 Silcoff, het ER /2017 s mouth every Cresencio, - morning for M.D. 01/26 attention/concentr /2017 ation Amphetamine-Dextroamp 11/27 Hx Caps ER 24HR 10mg 30cap take 1 capsule by F90.2 Silcoff, het ER s mouth every Cresencio, - morning for M.D. 12/08 attention/concentr ation; if not helpful may increase to 2 pills daily in am Prochlorperazine 05/31 Hx Tablets 5mg 10tab take 1-2 tablets A08.3 Silcoff, Maleate s by mouth every 6 9 Cresencio, - hours as needed M.D. 06/03 for nausea Alpha Male Supplement 05/02 Hx as directed Unknown - 05/02 Buprenorphine 04/04 Hx Tablets Sub 8-2mg 30tab 1/2 tab by mouth M54.5 Silcoff, HCL-Naloxone HCL s 2x/day; Cresencio, - buprenorphine M.D. 05/03 prescriber# /2015 [id number] M51.36 Buprenorphine 03/28/2016 - Hx Tablets 8-2mg 7tabs 1/2 tab by M54.5 Jackelinecoff, HCL-Naloxone HCL 04/04/2016 Sub mouth today; yifan Dupont M.D. tomorrow take 1/2 tab in am and 1/2 tab in mid afternoon M51.36 Phenazopyridine 10/07/2015 - Hx Tablets 200mg 9tabs 1 by mouth N41.1 Sopchak, HCL 10/10/2015 three Goldy, times a D.O. day for 3 days this will turn your urine orange colored. Ciprofloxacin HCL 10/07/2015 - Hx Tablets 500mg 60tabs 1 tab N41.1 Sopchak, 11/06/2015 twice a Goldy, day x 30 D.O. days Gabapentin 05/30/2014 - Hx Capsules 100mg 120caps 1 tabs by 601.1 Soptellyk, 10/07/2015 mouth four Goldy, times a D.O. [...] Tablets 500mg 1 bid Clive, 10/07/2015 MD Javy Zaleplon - Hx Capsules 10mg Unknown 03/27/2016 Doxycycline - Hx Capsules 100mg Unknown Hyclate 12/28/2013 Clindamycin HCL - Hx Capsules 300mg Take One Unknown 03/27/2018 Capsule By Mouth Every 6 Hours Hydrocodone-Aceta - Hx Tablets 5-325mg Take One Unknown minophen 03/27/2018 Tablet Every 4 To 6 Hours as Needed Maximum Daily Dose 4 Naproxen Sodium - Hx Tablets 550mg Take One Unknown 03/27/2018 Tablet By Mouth Every 12 Hours as Needed Immunizations CPT Code Status Date Vaccine Lot # [id number] Given 07/27/2018 Influenza Virus Vaccine, Quadrivalent, Split, [id number] Preservative Free 96456 Given 05/28/2018 Shingrix Zoster (Shingles) Vaccine (HZV) [id number] Recomb,Subnit,Adjuvanted 69424 Given 02/26/2018 Shingrix Zoster (Shingles) Vaccine (HZV) [id number] Recomb,Subnit,Adjuvanted 05812 Given 07/28/2017 Influenza Virus Vaccine, Quadrivalent, Split, Preservative Free 46260 Given 08/05/2016 Influenza Virus Vaccine, Quadrivalent, Split, [id number] Preservative Free 81893 Given 05/16/2014 Adacel or Boostrix, TDaP [id number] Vital Signs Date Vital Result Comment 11/24/2018 10:54am BP Systolic 132 mmHg BP Diastolic 82 mmHg Weight 248.00 lb 10/24/2018 5:41pm BP Systolic 130 mmHg BP Diastolic 84 mmHg Height 69 inches 5'9" 09/24/2018 4:59pm BP Systolic 120 mmHg BP Diastolic 80 mmHg Weight 253.00 lb 08/27/2018 3:14pm BP Systolic 134 mmHg BP Diastolic 78 mmHg Weight 244.50 lb w/sneakers 07/27/2018 11:15am BP Systolic 122 mmHg BP Diastolic 80 mmHg Weight 234.00 lb 06/27/2018 4:36pm BP Systolic 112 mmHg BP Diastolic 80 mmHg Weight 238.00 lb with sneakers 05/28/2018 4:55pm BP Systolic 124 mmHg BP Diastolic 78 mmHg 04/27/2018 2:15pm BP Systolic 130 mmHg BP Diastolic 70 mmHg Weight 236.00 lb 03/28/2018 5:06pm BP Systolic 122 mmHg BP Diastolic 80 mmHg Height 68 inches 5'8" Weight 242.00 lb BMI (Body Mass Index) 36.8 kg/m2 02/26/2018 4:53pm BP Systolic 110 mmHg BP Diastolic 80 mmHg Weight 253.00 lb 01/26/2018 2:26pm BP Systolic 126 mmHg BP Diastolic 84 mmHg 12/25/2017 9:25am BP Systolic 116 mmHg BP Diastolic 74 mmHg Weight 250.00 lb 11/27/2017 12:18pm BP Systolic 118 mmHg BP Diastolic 70 mmHg 10/27/2017 12:40pm BP Systolic 120 mmHg BP Diastolic 78 mmHg Weight 250.00 lb with sneakers 09/26/2017 2:56pm BP Systolic 116 mmHg BP Diastolic 70 mmHg Weight 249.00 lb w/workboots 08/28/2017 10:22am BP Systolic 120 mmHg BP Diastolic 76 mmHg Weight 249.50 lb 07/28/2017 3:35pm BP Systolic 102 mmHg BP Diastolic 70 mmHg Weight 246.00 lb 06/30/2017 1:51pm BP Systolic 110 mmHg BP Diastolic 72 mmHg Weight 245.00 lb with sneakers 05/31/2017 10:12am BP Systolic 120 mmHg BP Diastolic 80 mmHg Body Temperature 97.7 F Weight 241.00 lb 05/01/2017 11:36am BP Systolic 122 mmHg BP Diastolic 80 mmHg Weight 241.00 lb 03/31/2017 11:46am BP Systolic 118 mmHg BP Diastolic 80 mmHg Height 69.25 inches 5'9.25" with sneakers Weight 234.00 lb with sneakers BMI (Body Mass Index) 34.3 kg/m2 03/01/2017 10:31am BP Systolic 100 mmHg BP Diastolic 70 mmHg Weight 238.00 lb 01/30/2017 1:12pm BP Systolic 118 mmHg BP Diastolic 82 mmHg Weight 240.00 lb 12/30/2016 2:54pm BP Systolic 120 mmHg BP Diastolic 80 mmHg Weight 245.00 lb 12/02/2016 9:22am BP Systolic 132 mmHg BP Diastolic 92 mmHg Weight 250.00 lb 11/01/2016 10:56am BP Systolic 118 mmHg BP Diastolic 70 mmHg Heart Rate 68 /min reg Respiratory Rate 12 /min not laboured Body Temperature 97.9 F Weight 258.00 lb w/shoes 10/03/2016 11:37am BP Systolic 102 mmHg BP Diastolic 82 mmHg Height 69.75 inches 5'9.75" Weight 253.00 lb BMI (Body Mass Index) 36.6 kg/m2 08/30/2016 9:38am BP Systolic 118 mmHg BP Diastolic 82 mmHg Weight 257.00 lb 08/05/2016 11:47am BP Systolic 126 mmHg BP Diastolic 80 mmHg Weight 257.00 lb w/flip flops 07/04/2016 9:52am BP Systolic 132 mmHg BP Diastolic 86 mmHg Weight 263.00 lb 05/31/2016 11:22am BP Systolic 140 mmHg BP Diastolic 88 mmHg Weight 265.00 lb 05/03/2016 12:26pm BP Systolic 120 mmHg BP Diastolic 84 mmHg Weight 271.00 lb 04/04/2016 9:42am BP Systolic 128 mmHg BP Diastolic 82 mmHg 03/28/2016 9:47am BP Systolic 138 mmHg BP Diastolic 90 mmHg Height 69 inches 5'9" with sneakers Weight 268.00 lb with sneakers BMI (Body Mass Index) 39.6 kg/m2 10/07/2015 1:41pm BP Systolic 125 mmHg BP Diastolic 80 mmHg Height 68.25 inches 5'8.25" Weight 297.00 lb BMI (Body Mass Index) 44.8 kg/m2 05/30/2014 4:29pm BP Systolic 120 mmHg BP Diastolic 96 mmHg 05/16/2014 3:05pm BP Systolic 142 mmHg BP Diastolic 80 mmHg Height 68.5 inches 5'8.50" Weight 283.00 lb BMI (Body Mass Index) 42.4 kg/m2 Results Test Date Facility Test Result H/L Range Note Ua RFX Micro & 09/11/2018 [facility]. Urine Color YELLOW Yellow 1 Culture II LABORATORY [phone] Urine Clarity CLEAR Clear Urine Glucose - Dipstick NEGATIVE mg/dL Negative Urine Bilirubin - Dipstick NEGATIVE Negative Urine Ketone NEGATIVE mg/dL Negative Urine Specific [place] 1.015 N 1.010-1.030 Urine Blood NEGATIVE Negative Urine PH 7.0 N 6.5-7.5 Urine Protein - Dipstick NEGATIVE mg/dL Negative Urine Urobilinogen - Dipstick 0.2 E.U./dL N 0.2-1.0 Urine Nitrite - Dipstick NEGATIVE Negative Urine Leuk Esterase NEGATIVE Negative Source: URINE, CLEAN CAT <SEE NOTE> 2 Chlam/GC/Trichomonas 09/11/2018 [facility]. Ur Trichomonas NEGATIVE Negative PCR, Ur LABORATORY vaginalis,PCR [phone] Ur Chlamydia trachomatis,PCR NEGATIVE Negative Ur Neisseria gonorrhoeae,PCR NEGATIVE Negative 3 Urine Drug Screen Inhouse 05/28/2018 In House Ua Cocaine - Ua Opiates - Ua Amphetamines - Urine Methanphetamines - Urine Benzodiazepines QN [place] - Urine Oxycodone QL - Urine Drug Screen Inhouse 09/26/2017 In House Ua Cocaine - Ua Opiates - Ua Amphetamines - Urine Methanphetamines - Urine Benzodiazepines QN [place] - Urine Oxycodone QL - Urinalysis Profile 06/02/2017 [facility] Urine Color Yellow N [phone] Urine Appearance Cloudy N Urine Specific [place] 1.025 N 1.010-1.030 Urine pH 8.0 N 5-9 Urine Urobilinogen Negative N Negative Urine Ketones Trace Abnormal Negative Urine Protein 1+(30 mg/dL) Abnormal Negative Urine Leukocytes Negative N Negative Urine Blood Negative N Negative Urine Nitrite Negative N Negative Urine Bilirubin Negative N Negative Urine Glucose Negative N Negative Urine White Blood Cell Absent N Absent Urine Red Blood Cell Trace(0-2/hpf) N Absent Urine Bacteria Absent N Absent Urine Squamous Epithelial Cell Present Abnormal Absent CBC Auto Diff 06/02/2017 [facility] White Blood 15.2 10^3/uL High 3.5 -10.8 [phone] Count Red Blood Count 5.01 10^6/uL N 4.0-5.4 Hemoglobin 14.1 g/dL N 14.0-18.0 Hematocrit 42 % N 42-52 Mean Corpuscular Volume 84 fL N 80-94 Mean Corpuscular Hemoglobin 28 pg N 27-31 Mean Corpuscular HGB Conc 33 g/dL N 31-36 Red Cell Distribution Width 14 % N 10.5-15 Platelet Count 238 10^3/uL N 150-450 Mean Platelet Volume 8 um3 N 7.4-10.4 Abs Neutrophils 13.0 10^3/uL High 1.5-7.7 Abs Lymphocytes 1.6 10^3/uL N 1.0-4.8 Abs Monocytes 0.5 10^3/uL N 0-0.8 Abs Eosinophils 0 10^3/uL N 0-0.6 Abs Basophils 0.1 10^3/uL N 0-0.2 Abs Nucleated RBC 0 10^3/uL N Granulocyte % 85.2 % High 38-83 Lymphocyte % 10.8 % Low 25-47 Monocyte % 3.1 % N 1-9 Eosinophil % 0.2 % N 0-6 Basophil % 0.7 % N 0-2 Nucleated Red Blood Cells % 0 N Comp Metabolic Panel 06/02/2017 [facility] Sodium 137 mmol/L N 133- 145 [phone] Potassium 3.9 mmol/L N 3.5-5.0 Chloride 104 mmol/L N 101-111 Co2 Carbon Dioxide 28 mmol/L N 22-32 Anion Gap 5 mmol/L N 2-11 Glucose 110 mg/dL High 70-100 Blood Urea Nitrogen 12 mg/dL N 6-24 Creatinine 0.76 mg/dL N 0.67-1.17 BUN/Creatinine Ratio 15.8 N 8-20 Calcium 8.9 mg/dL N 8.6-10.3 Total Protein 6.6 g/dL N 6.4-8.9 Albumin 4.0 g/dL N 3.2-5.2 Globulin 2.6 g/dL N 2-4 Albumin/Globulin Ratio 1.5 N 1-3 Total Bilirubin 0.40 mg/dL N 0.2-1.0 Alkaline Phosphatase 64 U/L N 34-104 Alt 18 U/L N 7-52 Ast 15 U/L N 13-39 Egfr Non- 108.6 N >60 Egfr 139.6 N >60 4 Laboratory test finding 06/02/2017 [facility] Lipase 12 U/L N 11.0- 82.0 [phone] CRP High Sensitivity 4.66 mg/L N 5 Laboratory test 05/29/2017 [facility] Surgical SEE RESULT 6, 7 finding [phone] Pathology BELOW Ua RFX Micro & 03/10/2017 [facility]. Urine Color YELLOW Yellow 8 Culture II LABORATORY [phone] Urine Clarity CLEAR Clear Urine Glucose - Dipstick NEGATIVE mg/dL Negative Urine Bilirubin - Dipstick NEGATIVE Negative Urine Ketone NEGATIVE mg/dL Negative Urine Specific [place] >=1.030 N 1.010-1.030 Urine Blood TRACE Negative Urine PH 5.5 Low 6.5-7.5 Urine Protein - Dipstick TRACE mg/dL Negative Urine Urobilinogen - Dipstick 0.2 E.U./dL N 0.2-1.0 Urine Nitrite - Dipstick NEGATIVE Negative Urine Leuk Esterase NEGATIVE Negative Source: URINE, CLEAN CAT <SEE NOTE> 9 Urine Drug Screen Inhouse 03/01/2017 In House Ua Cocaine - Ua Opiates - Ua Amphetamines - Urine Methanphetamines - Urine Benzodiazepines QN [place] - Urine Oxycodone QL - Urine Micro Inhouse 11/01/2016 In House Ua WBC - 10 Ua RBC - Ua Casts - Ua Epi - Ua Other - Ua Glucose - Ua Bilirubin - Ua Ketones - Ua Specific [place] 1.010 Ua Blood - Ua PH 6.5 Ua Protein - Ua Urobilinogen - Ua Nitrite - Ua Leukocytes - Culture Urine Inhouse 11/01/2016 In House Colonies no growth Urine Drug Screen Inhouse 11/01/2016 In House Ua Cocaine - Ua Opiates - Ua Amphetamines - Urine Methanphetamines - Urine Benzodiazepines QN [place] - Urine Oxycodone QL - Urine Drug Screen Inhouse 08/30/2016 In House Ua Cocaine - Ua Opiates - Ua Amphetamines - Urine Methanphetamines - Urine Benzodiazepines QN [place] - Urine Oxycodone QL - Urine Drug Screen Inhouse 08/05/2016 In House Ua Cocaine - Ua Opiates - Ua Amphetamines - Urine Methanphetamines - Urine Benzodiazepines QN [place] - Urine Oxycodone QL - Urine Drug Screen Inhouse 07/04/2016 In House Ua Cocaine - Ua Opiates - Ua Amphetamines - Urine Methanphetamines - Urine Benzodiazepines QN [place] - Urine Oxycodone QL - Urine Drug Screen Inhouse 05/03/2016 In House Ua Cocaine - Ua Opiates - Ua Amphetamines - Urine Methanphetamines - Urine Benzodiazepines QN [place] - Urine Oxycodone QL - Laboratory test 02/25/2016 [facility] PSA Screening 1.077 ng/mL N 0- 4.0 11 finding [phone] Creatinine 02/25/2016 [facility] Creatinine 0.78 mg/dL N 0.67-1.17 [phone] Egfr Non- 105.8 N >60 Egfr 136.1 N >60 12 Laboratory test 02/25/2016 [facility] Blood Urea 13 mg/dL N 6-24 finding [phone] Nitrogen BUN Comp Metabolic 10/07/2015 [facility] Sodium 136 mmol/L N 133-145 Panel [phone] Potassium 4.3 mmol/L N 3.5-5.0 Chloride 99 mmol/L Low 101-111 Co2 Carbon Dioxide 31 mmol/L N 22-32 Anion Gap 6 mmol/L N 2-11 Glucose 112 mg/dL High 70-100 Blood Urea Nitrogen 13 mg/dL N 6-24 Creatinine 0.79 mg/dL N 0.67-1.17 BUN/Creatinine Ratio 16.5 N 8-20 Calcium 8.9 mg/dL N 8.6-10.3 Total Protein 6.3 g/dL Low 6.4-8.9 Albumin 3.8 g/dL N 3.2-5.2 Globulin 2.5 g/dL N 2-4 Albumin/Globulin Ratio 1.5 N 1-3 Total Bilirubin 0.30 mg/dL N 0.2-1.0 Alkaline Phosphatase 65 U/L N 34-104 Alt 18 U/L N 7-52 Ast 16 U/L N 13-39 Egfr Non- 104.2 N >60 Egfr 134.1 N >60 13 CBC Auto Diff 10/07/2015 [facility] White Blood 13.0 10^3/uL High 3.5 -10.8 [phone] Count Red Blood Count 4.91 10^6/uL N 4.0-5.4 Hemoglobin 13.4 g/dL Low 14.0-18.0 Hematocrit 41 % Low 42-52 Mean Corpuscular Volume 84 fL N 80-94 Mean Corpuscular Hemoglobin 27 pg N 27-31 Mean Corpuscular HGB Conc 33 g/dL N 31-36 Red Cell Distribution Width 15 % N 10.5-15 Platelet Count 251 10^3/uL N 150-450 Mean Platelet Volume 7 um3 Low 7.4-10.4 Abs Neutrophils 9.3 10^3/uL High 1.5-7.7 Abs Lymphocytes 2.3 10^3/uL N 1.0-4.8 Abs Monocytes 0.9 10^3/uL High 0-0.8 Abs Eosinophils 0.4 10^3/uL N 0-0.6 Abs Basophils 0.1 10^3/uL N 0-0.2 Abs Nucleated RBC 0.01 10^3/uL N Granulocyte % 71.8 % N 38-83 Lymphocyte % 17.5 % Low 25-47 Monocyte % 7.0 % N 1-9 Eosinophil % 3.3 % N 0-6 Basophil % 0.4 % N 0-2 Nucleated Red Blood Cells % 0.1 N Laboratory test 10/07/2015 [facility] PSA Diagnostic 0.966 ng/mL N 0- 4.000 14 [id number] [phone] 1 RT HIP SEVERE PAIN 2 URINE, CLEAN CATCH 3 A negative result for either C. trachomatis and/or N. gonorrhoeae does not preclued an infection because results are dependent on adequate specimen collection, absence of inhibitors, and sufficient DNA to be detected. 4 Because ethnic data is not always readily [...] 15-29 5 Kidney failure <15 (or dialysis) 5 Low risk: <1.00 Average risk: 1.00-3.00 High risk: >3.00 6 [id number] SEE RESULT BELOW Name: NOEL MCCARTNEY : [address]: John Palacios MD Acct: [id number] Unit: [id number] AGE: 51 Location: [facility] Re05/29/17 SEX: M Status: DEP REF SPEC: [id number] KIRSTIN: 05/29/17 [facility] DR: John Palacios MD REQ: [id number] RECD: 05/29/17 STATUS: GONZÁLEZ SWEENEY DR: Cresencio Valerio MD _ ORDERED: LEVEL 4/3 COMMENTS: [id number] FINAL DIAGNOSIS 1. Colon, hepatic flexure, biopsy: [...] performed at Main Lab DEPARTMENT OF PATHOLOGY, [address] [place] [address] Car Parrish M.D. Director [facility] # [id number] RUN DATE: 05/30/17 [facility] LAB LIVE PAGE 2 Patient: MCCARTNEYNOEL [id number] (Continued) GROSS DESCRIPTION (Continued) GROSS DESCRIPTION (Continued) [...] performed at Main Lab DEPARTMENT OF PATHOLOGY, [address] [place] [address] Car Parrish M.D. Director [facility] # [id number] 8 ? INFECTION , NEEDS ANTIBIOTICS 9 URINE, CLEAN CATCH 10 void, clear, yellow 11 Serum levels of PSA measured using the Lauro Brohard DXI Hybritech immunoassay should not be interpreted as absolute evidence of the presence or absence of disease. The PSA value should be used in conjunction with other pertinent clinical diagnostic procedures. The values obtained with different assay methods or kits cannot be used interchangeably. 12 Because ethnic data is not always readily [...] 15-29 5 Kidney failure <15 (or dialysis) 13 Because ethnic data is not always readily [...] 15-29 5 Kidney failure <15 (or dialysis) 14 Serum levels of PSA measured using the [facility] DXI Hybritech immunoassay should not be interpreted as absolute evidence of the presence or absence of disease. The PSA value should be used in conjunction with other pertinent clinical diagnostic procedures. The values obtained with different assay methods or kits cannot be used interchangeably. Procedures Date Code Description Status 05/29/2017 [id number] Colonoscopy Completed Encounters Type Date Location Provider Dx Diagnosis Office Visit 10/24/2018 Main Office Cresencio Valerio M51.36 Other intervertebral 5:15p MAdamaDAdama disc degeneration, lumbar region M54.5 Low back pain F90.2 Attention-deficit hyperactivity disorder, combined type F34.1 Dysthymic disorder Office Visit 09/24/2018 4:30p Main Office Teodoro M51.36 Other intervertebral Zeeshan Dupont disc degeneration, lumbar region M54.5 Low back pain F90.2 Attention-deficit hyperactivity disorder, combined type Z71.51 Drug abuse counseling and surveillance of drug abuser M25.551 Pain in right hip Office Visit 08/27/2018 3:00p Main Office Teodoro M51.36 Yamini intervertebral Zeeshan Dupont disc degeneration, lumbar region M54.5 Low back pain F90.2 Attention-deficit hyperactivity disorder, combined type Z71.51 Drug abuse counseling and surveillance of drug abuser Office Visit 07/27/2018 11:00a Main Office Teodoro M51.36 Other intervertebral Zeeshan Dupont disc degeneration, lumbar region M54.5 Low back pain Z23 Encounter for immunization Z41.8 Encntr for oth proc for purpose oth [facility] 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 (current) use of opiate analgesic Z71.51 Drug abuse counseling and surveillance of drug abuser M51.36 Other intervertebral disc degeneration, lumbar region M54.5 Low back pain F90.2 Attention-deficit hyperactivity disorder, combined type G47.30 Sleep apnea, unspecified Office Visit 02/26/2018 4:30p Main Office Cresencio Valerio Z79.891 penitentiary M.D. (current) use of opiate analgesic Z71.51 Drug abuse counseling and surveillance of drug abuser M51.36 Other intervertebral disc degeneration, lumbar region M54.5 Low back pain F90.2 Attention-deficit hyperactivity disorder, combined type Z23 Encounter for immunization Z41.8 Encntr for oth proc for purpose oth than 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 (current) use of opiate analgesic Z71.51 Drug abuse counseling and surveillance of drug abuser M51.36 Other intervertebral disc degeneration, lumbar region M54.5 Low back pain Office Visit 09/26/2017 2:30p Main Office Cresencio Valerio Z79.891 penitentiary M.D. (current) use of opiate analgesic Z71.51 Drug abuse counseling and surveillance of drug abuser M51.36 Other intervertebral disc degeneration, lumbar region M54.5 Low back pain Office Visit 08/28/2017 10:15a Main Office Cresencio Valerio Z79.891 penitentiary M.D. (current) use of opiate analgesic Z71.51 Drug abuse counseling and surveillance of drug abuser M51.36 Other intervertebral disc degeneration, lumbar region M54.5 Low back pain Office Visit 07/28/2017 3:45p Main Office Cresencio Valerio Z79.891 [facility] M.D. (current) use of opiate analgesic Z71.51 Drug abuse counseling and surveillance of drug abuser M51.36 Other intervertebral disc degeneration, lumbar region M54.5 Low back pain K21.9 Gastro-esophageal reflux disease without esophagitis Z23 Encounter for immunization Office Visit 06/30/2017 1:30p Main Office Cresencio Valerio Z79.891 [facility] M.D. 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 (current) use of opiate analgesic Z71.51 Drug abuse counseling and surveillance of drug abuser M51.36 Other intervertebral disc degeneration, lumbar region M54.5 Low back pain M72.2 Plantar fascial fibromatosis Office Visit 08/05/2016 11:30a Main Office Seymour Valerio1.36 Other intervertebral Zeeshan Dupont disc degeneration, lumbar region M54.5 Low back pain Z79.891 penitentiary (current) use of opiate analgesic Z71.51 Drug abuse counseling and surveillance of drug abuser Z12.11 Encounter for screening for malignant neoplasm of colon Z23 Encounter for immunization Z41.8 Encntr for oth proc for purpose oth [facility] Office Visit 07/04/2016 9:30a Main Office Seymour Valerio1.36 Other intervertebral Zeeshan Dupont disc degeneration, lumbar region M54.5 Low back pain Z79.891 penitentiary (current) use of opiate analgesic Office Visit 05/31/2016 11:15a Main Office Cresencio Valerio M.D. M54.5 Low back pain M72.2 Plantar fascial fibromatosis Z79.891 penitentiary (current) use of opiate analgesic Office Visit 05/03/2016 11:30a Main Office Cresencio Valerio M.D. M54.5 Low back pain M72.2 Plantar fascial fibromatosis Office Visit 04/04/2016 9:30a Main Office Cresencio Valerio M.D. M54.5 Low back pain M51.36 Other intervertebral disc degeneration, lumbar region M72.2 Plantar fascial fibromatosis Z79.891 penitentiary (current) use of opiate analgesic Office Visit 03/28/2016 9:30a Main Office Cresencio Valerio M.D. 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 M54.5 Low back pain M79.1 Myalgia S20.222A Contusion of left back wall of thorax, initial encounter Y92.012 Bathroom of single-family (private) house as place Office Visit 05/30/2014 4:15p Main Office Goldy Naylor, 601.1 Prostatitis Chronic D.O. 724.2 Lumbago 729.1 Myalgia & Myositis Unspec Office Visit 05/16/2014 2:45p Main Office Goldy Naylor, 601.1 Prostatitis Chronic D.O. 724.2 Lumbago 729.1 Myalgia & Myositis Unspec V06.1 Dvxplknlkb-Tfcfwnm-Fwboffoi Combined (DTaP) V07.2 Prophylactic Immunotherapy 719.45 Pain Joint Pelvic Region & Thigh Plan of Treatment Future Appointment(s):12/21/2018 4:00 pm - Cresencio Valerio M.D. at [facility]/24/2018 - Cresencio Valerio M.D.M51.36 Other intervertebral disc degeneration, lumbar regionFollow up:RTO 1 tidutV61.5 Low back painF90.2 Attention-deficit hyperactivity disorder, combined type
--- NOTE | 2018-12-10 10:59 | ED ---
GI/ HPI - HPI Summary HPI Summary: Pt is a 53 y/o male brought in by EMS who presents to the ED c/o CP. At 8:00 this morning he became diaphoretic, and had some epigastric pain with N/V. Pt then began to have left anterior CP and SOB, followed by diarrhea. He also notes that he is burping frequently. Pt rates his current pain as a 7/10 in severity. He was given Zofran, ASA, and NTG by EMS which slightly improved his sx. PMHx angina. Pt denies any alcohol use. FHx OK. - History of Current Complaint Time Seen by Provider: 12/10/18 10:37 Stated Complaint: GENERAL Hx Obtained From: Patient Onset/Duration: Started Hours Ago - 8:00 this morning, Still Present Timing: Constant Current Severity: Moderate Pain Intensity: 5 Location of Pain: Epigastric Associated Signs and Symptoms: Positive: Nausea, Vomiting, Diarrhea, Abdominal Pain, Chest Pain Aggravating Factor(s): Nothing Alleviating Factor(s): Medication - Zofran, ASA, NTG - Allergy/Home Medications Allergies/Adverse Reactions: Allergies Allergy/AdvReac Type Severity Reaction Status Date / Time No Known Allergies Allergy Verified 12/10/18 10:45 Home Medications: Home Medications Dextroamphetamine/Amphetamine [Mydayis ER 25 mg Capsule] 25 mg PO DAILY [History Confirmed 12/10/18] PMH/Surg Hx/FS Hx/Imm Hx Endocrine/Hematology History: Denies: Hx Diabetes Cardiovascular History: Reports: Hx Angina Denies: Hx Hypertension, Hx Pacemaker/ICD History: Denies: Hx Renal Disease Sensory History: Denies: Hx Hearing Aid Psychiatric History: Denies: Hx Panic Disorder - Surgical History Surgery Procedure, Year, and Place: ANAL FISTULAR REPAIR. CARPAL TUNNEL - [place] Infectious Disease History: No Infectious Disease History: Denies: Traveled Outside the [place] in Last 30 Days - Family History Known Family History: Positive: Diabetes - Social History Alcohol Use: None Hx Substance Use: Yes Substance Use Type: Reports: Marijuana Substance Use Comment - Amount & Last Used: Suboxone Hx Tobacco Use: Yes Smoking Status (MU): Former Smoker Review of Systems Positive: Skin Diaphoresis Positive: Chest Pain Positive: Shortness Of Breath Positive: Abdominal Pain - epigastric, Vomiting, Diarrhea, Nausea, Other - belching All Other Systems Reviewed And Are Negative: Yes Physical Exam - Summary Physical Exam Summary: Appearance: Well appearing, no pain distress, belching Skin: warm, dry, reflects adequate perfusion Head/face: normal Eyes: EOMI, HARLEY ENT: mucous membranes moist Neck: supple, non-tender Respiratory: CTA, breath sounds present Cardiovascular: RRR, pulses symmetrical, no LE edema, no reproducible chest pain Abdomen: soft, mild epigastric tenderness, no RUQ tenderness Bowel Sounds: increased Musculoskeletal: normal, strength/ROM intact Neuro: normal, sensory motor intact, A&Ox3 Triage Information Reviewed: Yes Vital Signs On Initial Exam: Initial Vitals Temp Pulse Resp BP Pulse Ox 98.1 F 67 12 135/95 100 12/10/18 10:41 12/10/18 10:41 12/10/18 10:41 12/10/18 10:41 12/10/18 10:41 Vital Signs Reviewed: Yes Diagnostics - Vital Signs Vital Signs Temp Pulse Resp BP Pulse Ox 12/10/18 10:44 70 7 135/95 100 12/10/18 10:41 98.1 F 67 12 135/95 100 - Laboratory Result Diagrams: 12/10/18 11:25 12/10/18 11:25 Lab Statement: Any lab studies that have been ordered have been reviewed, and results considered in the medical decision making process. - Radiology CXR Radiology Interpretation Completed By: Radiologist Summary of Radiographic Findings: LIMITED STUDY. NO ACTIVE CARDIOPULMONARY DISEASE. ED physician reviewed radiology report. - CT CT A/P CT Interpretation Completed By: Radiologist Summary of CT Findings: No acute abdominal pelvic pathologic process evident. Normal appendix documented. Negative for obstructive uropathy. Chronic finding of mild diffuse bladder wall thickening likely reflecting trabeculation. ED physician reviewed radiology report. - EKG 10:34 Cardiac Rate: NL - 65 bpm EKG Rhythm: Sinus Rhythm ST Segment: Normal Summary of EKG Findings: Nl axis, nl intervals Re-Evaluation - Re-Evaluation First Eval Re-Evaluation Time: 12:48 Change: Unchanged Comment: Pt still has abdominal pain and vomiting. Second Eval Re-Evaluation Time: 14:06 Change: Improved Comment: Pt feels much better after receiving morphine. He just now states that he is on Suboxone, and states that he did not miss any doses. GIGU Course/Dx - Course Course Of Treatment: Nurse's notes reviewed. Patient with symptoms concerning for gastroenteritis but does have a history of opiate dependence currently on Suboxone. After he was able to get better following morphine he was questioned whether or not this was related to withdrawal. He states that he had considered that as well but had been able to take his Suboxone. He didn't miss any doses. His CT is negative for any acute inflammatory pathology. Following treatment he was asymptomatic. He is discharged on Zofran, Imodium and will follow-up with primary care physician closely. - Diagnoses Differential Diagnoses - Male: Other - Gallbladder disease, gastritis, gastroenteritis, opiate withdrawal, cardiac etiology Provider Diagnoses: Gastroenteritis Discharge - Sign-Out/Discharge Documenting (check all that apply): Patient Departure - Discharge Patient Received Moderate/Deep Sedation with Procedure: No - Discharge Plan Condition: Improved Disposition: HOME Prescriptions: Famotidine TAB* [Pepcid 20 MG TAB*] 20 mg PO BID #10 tab Ondansetron ODT TAB* [Zofran 4 MG Odt TAB*] 4 mg PO Q6H PRN #12 tab.odt PRN Reason: Nausea Sucralfate TAB* [Carafate*] 1 gm PO QID #30 tab Patient Education Materials: Gastroenteritis (ED) Forms: *Work Release Referrals: Cresencio Valerio MD [Primary Care Provider] - Additional Instructions: [place] diet as tolerated. Drink plenty of fluids. Do not miss her medications. Call your doctor today to schedule prompt follow-up. Return if worse, unable to keep down fluids, new symptoms or other concerns. Imodium can be taken for diarrhea. - Billing Disposition and Condition Condition: IMPROVED Disposition: Home - Attestation Statements Document Initiated by Glenda: Yes Documenting Scribe: Elli Shea Provider For Whom Glenda is Documenting (Include Credential): Ciro Herrmann MD Scribe Attestation: Elli Horvath, scribed for Ciro Herrmann MD on 12/10/18 at 1612. Scribe Documentation Reviewed: Yes Provider Attestation: The documentation as recorded by the Elli de la rosa accurately reflects the service I personally performed and the decisions made by me, Ciro Herrmann MD Status of Scribe Document: Viewed
[2018-12-10] MEDS ORDERED: Ondansetron INJ* 2 MG/ML VIAL ONE (11:27)
[2018-12-10] MEDS ORDERED: Ondansetron INJ* 2 MG/ML VIAL IV ONE (11:28)
[2018-12-10 11:34] LABS: ABS Basophils 0 10^3/ul (0-0.2); ABS Eosinophils 0.1 10^3/ul (0-0.6); ABS Lymphocytes 1.9 10^3/ul (1.0-4.8); ABS Monocytes 0.5 10^3/ul (0-0.8); ABS Neutrophils 10.1 10^3/ul (1.5-7.7); ABS Nucleated RBC 0 10^3/ul; Eosinophil % 0.7 %; Hematocrit 41 % (42-52); Hemoglobin 13.9 g/dl (14.0-18.0); Lymphocyte % 15.3 %; Mean Corpuscular HGB Conc 34 g/dl (31-36); Mean Corpuscular Hemoglobin 28 pg (27-31); Mean Corpuscular Volume 82 fL (80-94); Nucleated Red Blood Cells % 0.1; Platelet Count 251 10^3/ul (150-450); Red Blood Count 5.02 10^6/ul (4.00-5.40); Red Cell Distribution Width 14 % (10.5-15); White Blood Count 12.7 10^3/ul (3.5-10.8)
[2018-12-10 12:03] LABS: Albumin 3.8 g/dL (3.2-5.2); Albumin/Globulin Ratio 1.4 (1-3); BUN/Creatinine Ratio 16.9 (8-20); C Reactive Protein 5.58 mg/L (<8.01); Calcium 8.9 mg/dL (8.6-10.3); EGFR African American 156.1 (>60); Globulin 2.7 g/dL (2-4); Total Bilirubin 0.3 mg/dL (0.2-1.0); Total Protein 6.5 g/dL (6.4-8.9)
[2018-12-10 12:48] LABS: Urine Appearance Cloudy; Urine Bacteria Absent (Absent); Urine Bilirubin Negative (Negative); Urine Blood Negative (Negative); Urine Color Yellow; Urine Glucose Negative (Negative); Urine Ketones Negative (Negative); Urine Nitrite Negative (Negative); Urine Protein 1+(30 mg/dL) (Negative); Urine Red Blood Cell Trace(0-2/hpf) (Absent); Urine Specific Gravity 1.017 (1.010-1.030); Urine Urobilinogen Negative (Negative); Urine White Blood Cell Trace(0-5/hpf) (Absent)
[2018-12-10] MEDS ORDERED: DiMENhydriNATE IV* 50 MG/ML VIAL IV PUSH ONE (12:49)
[2018-12-10] MEDS ORDERED: Metoclopramide IV* 5 MG/ML 2 ML VIAL IV ONE (12:49)
[2018-12-10] MEDS ORDERED: Morphine VIAL* 4 MG/ML VIAL (1 ml vial) IV ONE (12:49)
[2018-12-10] MEDS ORDERED: Iohexol 300* (CONTRAST) 10 ML SDV IV ONE (13:44)
[2018-12-10 14:43] VITALS: BP 134/87
== END 2018-12-10 14:43 | disposition home or self-care (01) ==
LOC: ED 10:32
DX: K52.9 Noninfective gastroenteritis and colitis, unspecified (principal); R10.13 Epigastric pain; R07.89 Other chest pain; R06.02 Shortness of breath; Z87.891 Personal history of nicotine dependence
CPT/HCPCS: 36415; 71045; 74177; 80053; 81003; 81015; 83605; 83690; 84484; 85025; 86140; 87086; 93005; 96374; 96375; 99284; A9270-GY; J1240; J2270; J2405; J2765; Q9967

== ENCOUNTER → 2019-07-05 | Day surgery (SDC) | payer BC ==
[~2019-07-05] MED LIST changes: +Acetaminophen TAB* 325 MG ONE; +Acetaminophen TAB* 325 MG PO ONE; +Acetaminophen TAB* 325 MG PO PRN; +Bacitracin OINTMENT* 0.5% 0.5 oz TUBE ONE; +Buffered Lidocaine 1% SYRIN* 1 ML/SYRINGE INTRADERM ONE; +Cisatracurium* 2 MG/ML MDV 5 ML ONE; +Dexamethasone IV* 4 MG/ML 1 ML (4 MG) ONE; +DiMENhydriNATE IV* 50 MG/ML VIAL IV PUSH PRN; +Famotidine IV* 10 MG/ML 2 ML (20 mg) IV ONE; +Famotidine IV* 10 MG/ML 2 ML (20 mg) ONE; +Gabapentin CAP(*) 400 MG PO ONE; -Iohexol 300* (CONTRAST) 10 ML SDV IV ONE; +Lactated Ringers 1000 ML Bag* 1,000 ML IV SCH; +Lidocaine 1% w EPI 1:100,000* MDV 20 ML VIAL ONE; +Lidocaine 2% PF * 5 ML VIAL ONE; +Lidocaine 4% TOPICAL* 50 ML TOP.SOLN ONE; +Midazolam* 1 MG/ML 2 ML VIAL (2 MG) ONE; -NS 0.9% 1000 ML* 2,000 ML IV ONE; +Naloxone* 0.4 MG/ML 1 ML VIAL IV PRN; +Ondansetron INJ* 2 MG/ML VIAL IV PRN; +Ondansetron INJ* 2 MG/ML VIAL ONE; +Oxymetazoline 0.05% NASAL SPR* 15 ML BTL ONE; +PROCHLORPERAZINE INJ 5 MG/ML 2 ML VIAL IV PRN; +Propofol* 10 MG/ML 20 ML BTL ONE; +Succinylcholine* 20 MG/ML 10 ML VIAL ONE; +diPHENhydraMINE IV* 50 MG/ML 1 ml VIAL (BENADRYL) IV PRN; +fentaNYL* 50 MCG/ML 2 ML VIAL (100 MCG VIAL) IV PRN; +fentaNYL* 50 MCG/ML 2 ML VIAL (100 MCG VIAL) ONE
[2019-07-05 16:09] VITALS: BP 158/90
--- NOTE | 2019-07-05 21:51 | OP ---
DATE OF OPERATION: 07/05/19 - [facility] DATE OF : 67 SURGEON: Suleman Kern MD. CARDIAC EXERCISE PHYSIOLOGIST: None. ANESTHESIA: General. PRE-OP DIAGNOSES: Deviated nasal septum and bilateral inferior turbinate hypertrophy. POST-OP DIAGNOSES: Deviated nasal septum and bilateral inferior turbinate hypertrophy. OPERATIVE PROCEDURE: Septoplasty with bilateral inferior turbinate reduction. ESTIMATED BLOOD LOSS: Approximately 50 cc. SPECIMENS: Septal cartilage and bone discarded. DESCRIPTION OF PROCEDURE: This is a 53-year-old male who has suffered multiple prior nasal fractures and has had longstanding nasal airway obstruction refractory to medical management. He has fairly severe septal deviation and also bilateral inferior turbinate hypertrophy. On 07/05/19, the patient was brought to the operating room. General anesthesia was induced and oral endotracheal tube was placed. The patient was then draped and a time-out was performed. Pledgets soaked with Afrin and 4% lidocaine were placed into each nasal cavity. Once adequate time had been allowed it for vasoconstriction, the inferior turbinates were then infiltrated with 1% lidocaine with 1:100,000 epinephrine. The region of the columella was also infiltrated as well as both sides of the septum. The procedure was began by addressing the turbinates. The turbinates were infractured with the Gallia elevator. Multiple passes were made through each turbinate with the LiquidPistonmed bipolar device. The turbinates were then outfractured. At that point, a #15 blade was then used to make a left hemitransfixion incision. A mucoperichondrial flap was elevated on the left side. The quadrangular cartilage was then incised approximately 5 mm posterior to the skin incision to gain access to the submucoperichondrial space along the right side and a flap was elevated over the right side of the septum. With the septal cartilage and bone elevated, a Maxx swivel knife was brought into the field and used to remove a large portion of the quadrangular cartilage. Harini forceps were used to remove multiple pieces of deviated cartilage. The 4 mm osteotome was used to take down much of the maxillary crest, which was extremely prominent and creating significant obstruction on the left side. More posteriorly, a double action rongeur was used to remove small pieces of bone involved in the septal deflection. Once the septal cartilage and bone were removed, the largest piece of quadrangular cartilage was selected. It was flattened with the morcellizer. It was then placed back between the mucoperichondrial flaps and sutured in position with quilting stitch. The hemitransfixion incision was then closed using chromic, and magnetic splints were then applied. These were secured with a 4-0 Prolene. A drip pad was applied. The patient was then returned to care of the of the anesthesiologist, extubated, and delivered to the PACU. [id number]/[facility] #: [id number] ISAK
== END | disposition home or self-care (01) ==
LOC: OR 11:55
PROVIDERS: ATTEND Otolaryngology
DX: J34.2 Deviated nasal septum (principal); J34.3 Hypertrophy of nasal turbinates; Z87.891 Personal history of nicotine dependence; K21.9 Gastro-esophageal reflux disease without esophagitis; G89.29 Other chronic pain; G47.33 Obstructive sleep apnea (adult) (pediatric); F90.9 Attention-deficit hyperactivity disorder, unspecified type
CPT/HCPCS: A9270-GY; J0330; J1100; J2250; J2405; J2704; J3010